=== PATIENT | male | born 1945 | race Hispanic/Latino ===

== ENCOUNTER 2018-06-05 22:33 | Inpatient (IN) | payer MEDICARE, MEDICAID | END 2018-06-09 18:23 | disposition home or self-care (01) | LOC: EDH 22:33 → EDHIP 06-06 00:44 → 3DH 06-06 15:35 | PROC: 0FT44ZZ Resection of Gallbladder, Percutaneous Endoscopic Approach (ICD-10-PCS; principal; 2018-06-08 10:49) | DX: K80.00 Calculus of gallbladder with acute cholecystitis without obstruction (principal) ==

== ENCOUNTER → 2020-09-12 | Outpatient (CLI) | payer OTHER, MEDICARE ==
[~2020-09-12] MED LIST: ACET-2247 PO; AMOX-426 PO; ASPI-556 PO; ASPI1CPM8 PO; BACL5TAB PO; LISI2.5T2 PO; MECL-160 PO; METF-444 PO; SIMV-43 PO; TAMS0.4C32 PO
== END | disposition home or self-care (01) ==
LOC: RAH 09-11 08:54
PROVIDERS: ATTEND Family Medicine
DX: N28.1 Cyst of kidney, acquired (principal); K76.0 Fatty (change of) liver, not elsewhere classified
CPT/HCPCS: 76700

== ENCOUNTER 2021-06-28 13:08 | Emergency (ER) | payer OTHER, MEDICARE ==
[~2021-06-28] VITALS: Ht 167.6 cm; Wt 77.6 kg
[~2021-06-28 13:08] MED LIST changes: +LISI2.5T13 PO; -LISI2.5T2 PO
[2021-06-28 13:54] LABS: BASOPHILS % (AUTO) 0.6 % (0.0-5.0); EOSINOPHILS % (AUTO) 5.6 % (0.0-8.0); HEMATOCRIT 39.1 % (42-54); LYMPHOCYTES % (AUTO) 19.2 % (21.0-51.0); MEAN CORPUSCULAR HEMOGLOBIN 30.3 pg (27.0-33.0); MEAN CORPUSCULAR HGB CONC 33.5 g/dL (32.0-36.0); MEAN CORPUSCULAR VOLUME 90.5 fL (79-99); MONOCYTES % (AUTO) 9.3 % (3.0-13.0); NEUTROPHILS % (AUTO) 64.9 % (40.0-77.0); PLATELET COUNT (AUTO) 253 K/uL (130-400); RED BLOOD CELL COUNT(AUTO) 4.32 MIL/uL (4.50-6.20); RED CELL DISTRIBUTION WIDTH 13.2 % (11.0-15.5); WHITE BLOOD COUNT (AUTO) 11.4 K/uL (4.8-10.8)
[2021-06-28 14:12] LABS: CREATININE 1.1 mg/dL (0.5-1.5)
[2021-06-28 14:24] VITALS: BP 108/66
[2021-06-28 14:32] LABS: APPEARANCE,URINE Clear (CLEAR); BILIRUBIN,URINE Negative (NEGATIVE); COLOR,URINE Yellow (YELLOW); GLUCOSE, URINE (UA) Negative (NEGATIVE); KETONES,URINE Negative (NEGATIVE); LEUKOCYTE ESTERASE ,URINE Negative (NEGATIVE); NITRATE,URINE Negative (NEGATIVE); OCCULT BLOOD,URINE Negative (NEGATIVE); PH,URINE 6.5 (5.0-8.0); PROTEIN,URINE POS 1+ mg/dL (NEGATIVE); UROBILINOGEN,URINE 0.2 mg/dL (0.2-1.0)
[2021-06-28 14:41] LABS: BACTERIA,URINE Few /HPF (None Seen); MUCUS,URINE Few LPF (None Seen); RBC,URINE 0-1 /HPF (0-1); SQUAMOUS EPITHELIAL CELL,UR Few /HPF (0-2); WBC,URINE 0-1 /HPF (0-1)
[2021-07-14] MEDS ORDERED: RANO500T2 PO (10:38)
[2021-07-14] MEDS ORDERED: NAPR-1023 PO (10:38)
[2021-07-14] MEDS ORDERED: GLIP5TAB11 PO (10:38)
[2021-07-14] MEDS ORDERED: ISOS60TA77 PO (10:38)
[2021-07-14] MEDS ORDERED: TAMS-1 PO (10:38)
[2021-07-14] MEDS ORDERED: METF-446 PO (10:38)
[2021-07-14] MEDS ORDERED: ESCI-8 PO (10:38)
== END 2021-06-28 15:21 | disposition home or self-care (01) ==
LOC: EDH 13:08
DX: R55 Syncope and collapse (principal); R42 Dizziness and giddiness; E11.9 Type 2 diabetes mellitus without complications; I10 Essential (primary) hypertension; Z79.82 Long term (current) use of aspirin; Z79.899 Other long term (current) drug therapy; Z79.84 Long term (current) use of oral hypoglycemic drugs; Z98.890 Other specified postprocedural states
CPT/HCPCS: 36415; 80048; 81001; 82948; 84484; 85025; 93005

== ENCOUNTER 2021-07-15 07:29 | Day surgery (SDC) | payer OTHER, MEDICARE ==
[2021-07-13 11:22] LABS: BASOPHILS % (AUTO) 0.9 % (0.0-5.0); EOSINOPHILS % (AUTO) 7.7 % (0.0-8.0); HEMATOCRIT 42.4 % (42-54); LYMPHOCYTES % (AUTO) 27.8 % (21.0-51.0); MEAN CORPUSCULAR HEMOGLOBIN 30.8 pg (27.0-33.0); MEAN CORPUSCULAR HGB CONC 33.5 g/dL (32.0-36.0); MONOCYTES % (AUTO) 10.1 % (3.0-13.0); NEUTROPHILS % (AUTO) 53.2 % (40.0-77.0); PLATELET COUNT (AUTO) 289 K/uL (130-400); RED BLOOD CELL COUNT(AUTO) 4.61 MIL/uL (4.50-6.20); RED CELL DISTRIBUTION WIDTH 13.4 % (11.0-15.5)
[2021-07-13 11:33] LABS: POTASSIUM 4.3 mmol/L (3.5-5.1)
[2021-07-13 11:40] LABS: INR 0.98 (0.85-1.15); PROTHROMBIN TIME 10.7 SEC (9.6-11.6)
[2021-07-13 11:41] LABS: PARTIAL THROMBOPLASTIN TIME 25.6 SEC (26.3-35.5)
[2021-07-13 12:16] LABS: APPEARANCE,URINE Clear (CLEAR); BILIRUBIN,URINE Negative (NEGATIVE); COLOR,URINE Yellow (YELLOW); GLUCOSE, URINE (UA) Negative (NEGATIVE); KETONES,URINE Negative (NEGATIVE); LEUKOCYTE ESTERASE ,URINE Negative (NEGATIVE); NITRATE,URINE Negative (NEGATIVE); OCCULT BLOOD,URINE Negative (NEGATIVE); PH,URINE 5.5 (5.0-8.0); PROTEIN,URINE Negative (NEGATIVE)
[2021-07-13 12:17] LABS: B-TYPE NATRIURETIC PEPTIDE 33 pg/mL (0-100)
[2021-07-14 10:15] VITALS: BP 135/72
[~2021-07-15] VITALS: Ht 170.2 cm; Wt 77.0 kg
[2021-07-15] VITALS (10 sets, daily range): BP systolic 158–182; BP diastolic 81–88
[~2021-07-15 07:29] MED LIST changes: +0.9%NACL 1000ML 1,000 ML IV ONE; -ACET-2247 PO; -AMOX-426 PO; -ASPI-556 PO; -BACL5TAB PO; +ESCI-8 PO; +GLIP5TAB11 PO; +ISOS60TA77 PO; -MECL-160 PO; -METF-444 PO; +METF-446 PO; +NAPR-1023 PO; +RANO500T2 PO; -SIMV-43 PO; +TAMS-1 PO; -TAMS0.4C32 PO
[2021-07-15] MEDS ORDERED: 0.9%NACL 1000ML 1,000 ML IV SCH ×2 (08:00→12:00)
[2021-07-15] MEDS ORDERED: IOHEXOL-350 75 ML VIAL IV ONE (10:30)
[2021-07-15] MEDS ORDERED: NITROGLYCERIN 50MG VIAL ONE (10:30)
[2021-07-15] MEDS ORDERED: IOHEXOL-350 50ML VIAL IV ONE (10:30)
[2021-07-15] MEDS ORDERED: MIDAZOLAM HCL 1 MG/ML 2ML VIAL ONE (10:31)
[2021-07-15] MEDS ORDERED: FENTANYL CITRATE PF 50 MCG/1 ML 2ML VIAL ONE (10:31)
[2021-07-15] MEDS ORDERED: LIDOCAINE HCL 1% MDV 50ML VIAL ONE (10:31)
== END 2021-07-15 18:03 | disposition home or self-care (01) ==
LOC: DAH 07:29
PROVIDERS: ATTEND Internal Medicine Cardiovascular Disease
DX: I25.110 Atherosclerotic heart disease of native coronary artery with unstable angina pectoris (principal); I10 Essential (primary) hypertension; E11.9 Type 2 diabetes mellitus without complications; E66.3 Overweight; E78.5 Hyperlipidemia, unspecified; Z79.01 Long term (current) use of anticoagulants; Z79.899 Other long term (current) drug therapy; Z98.890 Other specified postprocedural states; Z79.82 Long term (current) use of aspirin; Z79.84 Long term (current) use of oral hypoglycemic drugs; Z90.49 Acquired absence of other specified parts of digestive tract; Z68.26 Body mass index [BMI] 26.0-26.9, adult
CPT/HCPCS: 36415; 71045; 80048; 81003; 82948 ×2; 83880; 85025; 85610; 85730; 93005; 93458; A4215; A4216; A4221; A4222; A4223 ×3; A4606; A4663; C1760; C1894 ×2; J1644; J2250; J3010; J3490 ×2; J7030; Q9965; Q9967; 99156; 99157

== ENCOUNTER → 2021-09-18 | Outpatient (CLI) | payer OTHER, MEDICARE ==
[~2021-09-18] MED LIST changes: -0.9%NACL 1000ML 1,000 ML IV ONE; -NAPR-1023 PO
[2021-09-18 14:27] LABS: BASOPHILS % (AUTO) 0.7 % (0.0-5.0); EOSINOPHILS % (AUTO) 1.5 % (0.0-8.0); HEMATOCRIT 45.8 % (42-54); LYMPHOCYTES % (AUTO) 17.6 % (21.0-51.0); MEAN CORPUSCULAR HEMOGLOBIN 30.3 pg (27.0-33.0); MEAN CORPUSCULAR VOLUME 91.8 fL (79-99); MONOCYTES % (AUTO) 13.7 % (3.0-13.0); NEUTROPHILS % (AUTO) 66.1 % (40.0-77.0); PLATELET COUNT (AUTO) 261 K/uL (130-400); RED BLOOD CELL COUNT(AUTO) 4.99 MIL/uL (4.50-6.20); RED CELL DISTRIBUTION WIDTH 13.3 % (11.0-15.5); WHITE BLOOD COUNT (AUTO) 9.7 K/uL (4.8-10.8)
[2021-09-18 14:36] LABS: ABG BASE EXCESS -2.4 mmol/L (-2.0-3.0); ABG HCO3 20.8 mmol/L (21.0-28.0); ABG OXYGEN SATURATION 97.1 % (95.0-99.0); ABG PCO2 32 mmHg (35-48)
[2021-09-18 14:40] LABS: INR 0.98 (0.85-1.15); PROTHROMBIN TIME 10.7 SEC (9.6-11.6)
[2021-09-18 14:42] LABS: PARTIAL THROMBOPLASTIN TIME 27.3 SEC (26.3-35.5)
[2021-09-18 14:45] LABS: ALBUMIN 3.9 g/dL (3.5-5.0); CREATININE 1.2 mg/dL (0.5-1.5); POTASSIUM 4.1 mmol/L (3.5-5.1); TOTAL PROTEIN, SERUM 8.1 g/dL (6.0-8.3)
[2021-09-18 14:47] LABS: HEMOGLOBIN A1C 7.1 % (4.0-6.0)
== END | disposition home or self-care (01) ==
LOC: LAB 13:42 → EDSTATUS 09-22 12:00
PROVIDERS: ATTEND Thoracic Surgery (Cardiothoracic Vascular Surgery)
DX: U07.1 COVID-19 (principal); Z01.818 Encounter for other preprocedural examination; I25.10 Atherosclerotic heart disease of native coronary artery without angina pectoris; E11.9 Type 2 diabetes mellitus without complications; Z79.01 Long term (current) use of anticoagulants
CPT/HCPCS: 93880; 71046; 87635; 80061; 83036; 80053; 82803; 85025; 85610; 85730; 86850; 86900; 86901; 36415; 93005; 36600; 94010; A6260

== ENCOUNTER → 2022-05-11 | Outpatient (CLI) | payer OTHER, MEDICARE ==
[~2022-05-11] MED LIST changes: -ASPI1CPM8 PO; -ISOS60TA77 PO; -LISI2.5T13 PO; -RANO500T2 PO
== END | disposition home or self-care (01) ==
LOC: SHCH 12:37
PROVIDERS: ATTEND Internal Medicine Cardiovascular Disease
DX: I51.7 Cardiomegaly (principal); R07.9 Chest pain, unspecified; R06.09 Other forms of dyspnea
CPT/HCPCS: 93306

== ENCOUNTER → 2023-08-04 | Outpatient (CLI) | payer OTHER, MEDICARE ==
[~2023-08-04] MED LIST changes: -GLIP5TAB11 PO; +GLIP5TAB15 PO
== END | disposition home or self-care (01) ==
LOC: SHCH 14:09
PROVIDERS: ATTEND Internal Medicine Cardiovascular Disease
DX: I70.203 Unspecified atherosclerosis of native arteries of extremities, bilateral legs (principal); I87.2 Venous insufficiency (chronic) (peripheral); I87.1 Compression of vein
CPT/HCPCS: 93925; 93970

== ENCOUNTER 2023-11-17 06:51 | Day surgery (SDC) | payer OTHER, MEDICARE ==
[2023-11-15 11:04] VITALS: BP 134/77; PULSE 92; RESP 18; TEMP 97.5
[2023-11-15 11:15] LABS: CREATININE 1.1 mg/dL (0.5-1.3); POTASSIUM 3.9 mmol/L (3.5-5.1)
[2023-11-15 11:18] LABS: BASOPHILS # (AUTO) 0.11 K/uL (0.00-0.20); EOSINOPHILS # (AUTO) 0.69 K/uL (0.00-0.70); EOSINOPHILS % (AUTO) 6.2 % (0.0-8.0); HEMATOCRIT 39.3 % (42-54); IMMATURE GRANULOCYTE ABSOLUTE 0.05 K/uL (0-1); MEAN CORPUSCULAR HEMOGLOBIN 29.8 pg (27.0-33.0); MEAN CORPUSCULAR HGB CONC 33.8 g/dL (32.0-36.0); MEAN CORPUSCULAR VOLUME 88.1 fL (79-99); MONOCYTES # (AUTO) 1.1 K/uL (0.1-1.0); MONOCYTES % (AUTO) 9.6 % (3.0-13.0); NEUTROPHILS # (AUTO) 6.3 K/uL (1.8-7.7); NEUTROPHILS % (AUTO) 55.8 % (40.0-77.0); PLATELET COUNT (AUTO) 457 K/uL (130-400); RED BLOOD CELL COUNT(AUTO) 4.46 MIL/uL (4.50-6.20); RED CELL DISTRIBUTION WIDTH 13.4 % (11.0-15.5); WHITE BLOOD COUNT (AUTO) 11.2 K/uL (4.8-10.8)
[2023-11-15 11:22] LABS: PROTHROMBIN TIME 10.8 SEC (9.6-11.6)
[2023-11-15 11:23] LABS: PARTIAL THROMBOPLASTIN TIME 26.4 SEC (26.3-35.5)
[2023-11-17] VITALS (23 sets, daily range): BP systolic 118–152; BP diastolic 69–84; PULSE 62–77; RESP 12–18; TEMP 97.4–97.9
[~2023-11-17] VITALS: Ht 165.1 cm; Wt 77.6 kg
[2023-11-17] MEDS ORDERED: ATOR40TA69 PO (08:10)
[2023-11-17] MEDS ORDERED: FLUO40CA49 PO (08:10)
[2023-11-17] MEDS ORDERED: METO-391 PO (08:10)
[2023-11-17] MEDS ORDERED: HYDR25TA PO (08:10)
[2023-11-17] MEDS ORDERED: LISI20TA24 PO (08:10)
[2023-11-17] MEDS ORDERED: NITR0.4T50 SL (08:10)
[2023-11-17] MEDS ORDERED: ESCI-8 PO (08:10)
[2023-11-17] MEDS ORDERED: METO10TA3 PO (08:10)
[2023-11-17] MEDS ORDERED: ISOS60TA77 PO (08:10)
[2023-11-17 08:43] LABS: BASOPHILS % (AUTO) 0.9 % (0.0-5.0); EOSINOPHILS # (AUTO) 0.93 K/uL (0.00-0.70); HEMATOCRIT 38.6 % (42-54); IMMATURE GRANULOCYTE ABSOLUTE 0.04 K/uL (0-1); LYMPHOCYTES # (AUTO) 3.1 K/uL (1.0-4.8); LYMPHOCYTES % (AUTO) 26.2 % (21.0-51.0); MEAN CORPUSCULAR HEMOGLOBIN 29.8 pg (27.0-33.0); MEAN CORPUSCULAR HGB CONC 33.7 g/dL (32.0-36.0); MEAN CORPUSCULAR VOLUME 88.5 fL (79-99); MONOCYTES % (AUTO) 8.5 % (3.0-13.0); NEUTROPHILS # (AUTO) 6.6 K/uL (1.8-7.7); NEUTROPHILS % (AUTO) 56.1 % (40.0-77.0); PLATELET COUNT (AUTO) 469 K/uL (130-400); RED BLOOD CELL COUNT(AUTO) 4.36 MIL/uL (4.50-6.20); RED CELL DISTRIBUTION WIDTH 13.7 % (11.0-15.5); WHITE BLOOD COUNT (AUTO) 11.7 K/uL (4.8-10.8)
[2023-11-17] MEDS ORDERED: BIVALIRUDIN 250 MG/VIAL IV ONE (08:51)
[2023-11-17] MEDS ORDERED: LIDOCAINE HCL 400MG/20ML VIAL ONE (08:51)
[2023-11-17] MEDS ORDERED: FENTanyl CITRate PF 50 MCG/1 ML 2ML VIAL ONE (08:51)
[2023-11-17] MEDS ORDERED: MIDAZOLAM HCL 1 MG/ML 2ML VIAL ONE (08:52)
[2023-11-17] MEDS ORDERED: IOHEXOL 350 MG/ML 100ML INFUS..BTL IV ONE (08:52)
[2023-11-17] MEDS ORDERED: NITROGLYCERIN 50MG VIAL ONE (08:52)
[2023-11-17] MEDS ORDERED: HEParin-NS 1,000 UNIT/500 ML 1,000 ML IV ONE (08:52)
[2023-11-17] MEDS ORDERED: IOHEXOL-350 50ML VIAL IV ONE (10:07)
[2023-11-17] MEDS ORDERED: ASPIRIN 81MG CHEW TAB ONE (10:14)
[2023-11-17] MEDS ORDERED: cloPIDOgrel 300MG TAB ONE (10:14)
[2023-11-17] MEDS ORDERED: DEXTROSE 50%-WATER 50 ML DISP.SYRIN IV PRN (11:00)
[2023-11-17] MEDS ORDERED: 0.9%NACL 1000ML 1,000 ML IV SCH (11:00)
[2023-11-17] MEDS ORDERED: GLUCAGON 1MG KIT 1 MG ML IM PRN (11:00)
[2023-11-17] MEDS ORDERED: hydrALAZine 20MG/ML VIAL IV PRN (11:00)
[2023-11-17] MEDS ORDERED: NITROGLYCERIN 0.4 MG SL TAB SL PRN (11:00)
[2023-11-17] MEDS ORDERED: INSULIN humuLIN R 100 UNIT/ML 3ML SQ SCH (11:30)
== END 2023-11-17 16:46 | disposition home or self-care (01) ==
LOC: DAH 06:51
PROVIDERS: ATTEND Internal Medicine Cardiovascular Disease
DX: I25.118 Atherosclerotic heart disease of native coronary artery with other forms of angina pectoris (principal); I10 Essential (primary) hypertension; E78.5 Hyperlipidemia, unspecified; I11.9 Hypertensive heart disease without heart failure; I77.9 Disorder of arteries and arterioles, unspecified; I87.2 Venous insufficiency (chronic) (peripheral); Z95.1 Presence of aortocoronary bypass graft; Z90.49 Acquired absence of other specified parts of digestive tract; Z79.82 Long term (current) use of aspirin; Z79.01 Long term (current) use of anticoagulants; Z79.899 Other long term (current) drug therapy
CPT/HCPCS: 80048; 85025 ×2; 85610; 85730; 36415 ×2; 71045; 93005; 82948 ×2; 36215; 93455; 75710; C9600; C1769; C1894 ×2; C1725; C1874 ×3; C1887; J3010; J3490 ×2; J2250; J1644; J0583; Q9967 ×2; A4215; A6402; A4657; A4222; A6260; A4221; A4663; A4216; A4606; C9601; Q9965 ×2; A4223 ×3; 96360; 96361; 99156; 99157